=== PATIENT | female | born 2005 | race Caucasian/White ===

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

== ENCOUNTER → 2024-04-06 | Outpatient (REF) | payer OTHER | LOC: M LAB REF 12:13 | PROVIDERS: ATTEND Physician Assistant | DX: J02.9 Acute pharyngitis, unspecified (principal) ==

== ENCOUNTER → 2024-06-15 | Outpatient (CLI) | payer OTHER ==
[2024-06-15 18:09] LABS: BASO % 0.5 % (0.0-1.0); EOS # 0.2 10^3/uL (0.0-0.5); EOS % 1.9 % (0.0-3.0); HEMATOCRIT 40.3 % (36.0-47.0); HEMOGLOBIN 12.8 g/dl (12.0-15.5); LYMPH # 1.7 10^3/uL (1.5-5.0); LYMPH % 21.8 % (24.0-44.0); MEAN CORPUSCULAR HEMOGLOBIN 27.5 pg (27.0-33.0); MEAN CORPUSCULAR HGB CONC 31.8 g/dl (32.0-36.5); MEAN CORPUSCULAR VOLUME 86.5 fl (80.0-96.0); MONO # 0.7 10^3/uL (0.0-0.8); MONO % 8.8 % (2.0-8.0); NEUTROPHILS # 5.3 10^3/uL (1.5-8.5); NEUTROPHILS % 66.5 % (36.0-66.0); PLATELET COUNT, AUTOMATED 343 10^3/uL (150-450); RED BLOOD COUNT 4.66 10^6/uL (4.00-5.40)
[2024-06-15 18:34] LABS: PERCENT SATURATION 16.2 % (13.2-45.0); TOTAL 25(OH) VITAMIN D 25.3 NG/ML (20.0-100.0)
[2024-06-15 18:35] LABS: FERRITIN 21.3 NG/ML (7.3-270.7); THYROID STIMULATING HORMONE 0.744 uIU/ML (0.48-4.17)
[2024-06-15 18:36] LABS: FREE T4 1.31 NG/DL (0.83-1.43)
== END ==
LOC: M PLALAB 15:02
PROVIDERS: ATTEND Physician Assistant
DX: G47.09 Other insomnia (principal); Z87.898 Personal history of other specified conditions; R55 Syncope and collapse; R53.83 Other fatigue

== ENCOUNTER → 2025-04-11 | Outpatient (CLI) | payer OTHER ==
[2025-04-11 17:33] LABS: PLATELET COUNT, AUTOMATED 338 10^3/uL (150-450)
[2025-04-11 17:39] LABS: ESTIMATED AVERAGE GLUCOSE 105.0 MG/DL (60-110)
[2025-04-11 17:54] LABS: IRON (FE) 58.0 UG/DL (50-170)
[2025-04-11 17:55] LABS: PERCENT SATURATION 19.1 % (13.2-45.0)
[2025-04-11 17:56] LABS: CHOLESTEROL LEVEL 155.0 MG/DL (<200); CHOLESTEROL RISK RATIO 4.17 (<5); FREE T4 1.16 NG/DL (0.89-1.76); LDL CHOLESTEROL 59.1 MG/DL (<100); NON-HDL-C 117.9 MG/DL; TRIGLYCERIDES LEVEL 294.0 MG/DL (<150)
== END ==
LOC: M PLALAB 16:20
PROVIDERS: ATTEND Nurse Practitioner Family
DX: D64.9 Anemia, unspecified (principal); E78.9 Disorder of lipoprotein metabolism, unspecified; Z13.1 Encounter for screening for diabetes mellitus; Z13.29 Encounter for screening for other suspected endocrine disorder